=== PATIENT | male | born 1990 | race Caucasian/White ===

== ENCOUNTER 2020-03-22 10:26 | Emergency (ER) | payer OTHER ==
--- NOTE | 2020-03-22 10:50 | EDM.PDOC ---
ED HPI GENERAL MEDICAL PROBLEM - General Stated Complaint: ER Time Seen by Provider: 03/22/20 10:35 Source of Information: Reports: Patient History Limitations: Reports: No Limitations - History of Present Illness INITIAL COMMENTS - FREE TEXT/NARRATIVE: PT presents to the ER with ongoing right-sided knee pain status post 3 weeks ago he had an injury after stepping in a ditch and twisted his knee. He states pain is normally about a 7 out of 10 unless he takes ibuprofen and goes not about 5 out of 10 which he does that today he said at the dull sharp mostly on the outside of the right knee. He has noticed that it seems to be popping and giving out maybe a little bit more. He states occasionally it does lock up he has been able to bear weight on it although some days hurt worse than others. He says Sunday night he believes he may have injured it again after stepping off a step wrong and has been using crutches since intermittently through the day but he is able to walk and bear weight on it. He denies any fever or heat to the area or redness no numbness or tingling no excessive swelling Location: Reports: Lower Extremity, Right Quality: Reports: Ache, Dull Improves with: Reports: Medication Associated Symptoms: Reports: No Other Symptoms Treatments [employer]: Reports: NSAIDS Review of Systems - Review of Systems Review Of Systems: See Below Constitutional: Reports: No Symptoms Musculoskeletal: Reports: Leg Pain, Joint Pain Skin: Reports: No Symptoms Neurological: Reports: No Symptoms Psychiatric: Reports: No Symptoms ED EXAM, GENERAL - Physical Exam Exam: See Below Exam Limited By: No Limitations General Appearance: Alert, WD/WN, No Apparent Distress Extremities: Normal Inspection, No Pedal Edema, Normal Capillary Refill, Other ( Exam to the right knee patient has mild decreased range of motion with extension normal flexion there is mild noted generalized edema but no effusion or ballottement he has no joint line tenderness he has normal varus valgus normal anterior posterior drawer's mild pain crepitus noted with Newton's he is neurovascular intact with a positive dorsalis pedis posterior tibialis and has normal flexion of the foot he is able to bear weight with no issues noted). No: Normal Range of Motion, Non-Tender Neurological: Alert, Oriented, CN II-XII Intact, Normal Cognition, Normal Reflexes, No Motor/Sensory Deficits Psychiatric: Normal Affect, Normal Mood Skin Exam: Warm, Dry, Intact, Normal Color, No Rash Course - Vital Signs Text/Narrative:: Patient was instructed to apply ice wear the knee brace as directed and [facility] He was given Ultram 50 mg #15 1 p.o. every 4-6 hours as needed Departure - Departure Time of Disposition: 10:50 Disposition: Home, Self-Care 01 Condition: Good Clinical Impression: Knee pain, right - Discharge Information *PRESCRIPTION DRUG MONITORING PROGRAM REVIEWED*: No *COPY OF PRESCRIPTION DRUG MONITORING REPORT IN PATIENT [place]: No Instructions: Acute Knee Pain, Adult Additional Instructions: Apply ice to the area is much as possible usually 1 hour on 1 hour off for the next 3 days Wear your knee brace as directed Take your medication Ultram 50 mg 1 every 4-6 hours as needed for pain Continue to take Tylenol 500 mg every 4-6 hours as needed Continue to take ibuprofen 800 mg every 8 hours as needed Follow-up with your primary care provider or [facility] provider in the next 2 to 3 days to set up an appointment and schedule an MRI Return to the emergency room if anything changes or gets worse - Problem List & Annotations (1) Knee pain, right SNOMED Code(s): 45720490 Code(s): M25.561 - PAIN IN RIGHT KNEE Status: Acute
== END 2020-03-22 11:00 | disposition home or self-care (01) ==
LOC: VM.ED 10:26
DX: M25.561 Pain in right knee (principal); X50.1XXA Overexertion from prolonged static or awkward postures, initial encounter
CPT/HCPCS: 99283; 99283-GF